=== PATIENT | male | born 1960 | race American Indian/Alaskan Native ===

== ENCOUNTER 2020-09-07 08:58 | Outpatient (CLI) | payer BC ==
--- NOTE | 2020-09-07 10:55 | Fluoroscopy Report ---
MODIFIED BARIUM SWALLOW INDICATION: DYSPHAGIA TECHNIQUE: Swallowing was evaluated in the lateral position under direct fluoroscopy. FINDINGS: The patient was evaluated with thin liquid, puree, semisolid and solid consistencies. Deglutition was normal. No evidence for aspiration or penetration. IMPRESSION: Unremarkable exam. Fluoroscopic time: 0.9 minutes Number of fluoroscopic images: 1 Signer Name: Adan Peterson Jr, MD Signed: 09/07/2020 10:51 AM Workstation Name: [id number]
== END 2020-09-07 08:59 | disposition home or self-care (01) ==
LOC: PT 08:58
PROVIDERS: ATTEND Otolaryngology
DX: R13.19 Other dysphagia (principal); R49.9 Unspecified voice and resonance disorder
CPT/HCPCS: 74230